=== PATIENT | female | born 1975 | race Caucasian/White ===

== ENCOUNTER 2022-06-11 12:20 | Outpatient (CLI) | payer BC ==
[2022-06-11] MEDS ORDERED: EPINEPHrine 1 MG/ML AMP ONE (12:37)
[2022-06-11] MEDS ORDERED: Lidocaine 1% PF 5 ML VIAL ONE (12:37)
[2022-06-11] MEDS ORDERED: Sodium Bicarbonate 2.5 MEQ/5 ML VIAL ONE (12:38)
[2022-06-11 13:01] VITALS: BP 114/66
== END 2022-06-11 14:15 | disposition home or self-care (01) ==
LOC: CSHRAD 12:20
PROVIDERS: ATTEND Orthopaedic Surgery
DX: M24.812 Other specific joint derangements of left shoulder, not elsewhere classified (principal); M75.122 Complete rotator cuff tear or rupture of left shoulder, not specified as traumatic; S43.432A Superior glenoid labrum lesion of left shoulder, initial encounter; Z98.890 Other specified postprocedural states; J45.909 Unspecified asthma, uncomplicated; Z79.899 Other long term (current) drug therapy; Z79.1 Long term (current) use of non-steroidal anti-inflammatories (NSAID)
CPT/HCPCS: 23350; J0171